=== PATIENT | male | born 1985 ===

== ENCOUNTER 2025-04-29 13:51 | Emergency (ER) | payer MEDICAID, SELFPAY ==
[2025-04-29 13:54] VITALS: BP 152/108; PULSE 83; RESP 20; TEMP 36.9; O2SAT 95
--- NOTE | 2025-04-29 14:06 | ED.GENADUL_ITS ---
Discharge Plan Disposition Patient Disposition: Home Condition: Good Discharge Details Clinical Impression: Spasm of muscle of lower back ED Provider: Dmitry Coffman Dexter Meds and New Rx's Prescriptions: New cyclobenzaprine 10 mg tablet 10 mg PO TID PRN (Reason: muscle spasm) Qty: 20 0RF lidocaine 5 % adhesive patch,medicated 1 patch topical DAILY PRN (Reason: back pain) Qty: 15 0RF Rx Instructions: leave on most painful area for up to 12 hrs Discharge Instructions Instructions: Muscle Spasm ED Additional Instructions: Alternate ibuprofen with acetaminophen every 4 hours as we discussed. Activity as tolerated but avoid excessive bending or heavy lifting. Lidocaine patches and cyclobenzaprine as needed for pain and spasm. Heat, gentle stretching, gentle massage will also help. Look into and obtain primary care for follow-up of your blood pressure as we discussed. Return to ED for any severe worsening back pain, bladder or bowel dysfunction, numbness or weakness to the legs, other concerns. HPI General Mode of arrival: ambulatory . Date/Time Provider Initiated Documentation: 04/29/25 14:01 . Limitations to Documentation: no limitations . Information obtained by: patient and RN notes reviewed . HPI Narrative: Patient presents to the ED with left-sided back pain, worse with certain movements. Patient has history of back problems. Went to lift what he thought was a light box, which turned out to be a very heavy box. In the process tweaked his low back muscle. Over the weekend he rested, took Tylenol and used heat. Returned to work today and has had increased pain due to standing all day, movements will cause muscle to spasm. Denies any bladder or bowel dysfunction. Denies any midline back pain. Denies numbness or weakness to the lower extremity. When the back spasms he gets pain which makes his left leg feel like it is going to let go but not any true weakness. Denies any abdominal pain. Denies any fever, vomiting or diarrhea. Related Data Home Medications ?Medication ?Instructions ?Recorded ?Confirmed cyclobenzaprine 10 mg tablet 10 mg PO TID PRN muscle s pasm #20 04/29/25 tabs lidocaine 5 % topical patch 1 patch topical DAILY PRN back 04/29/25 pain #15 ea Previous Rx's ?Medication ?Instructions ?Recorded cyclobenzaprine 10 mg tablet 10 mg PO TID PRN muscle s pasm #20 04/29/25 tabs lidocaine 5 % topical patch 1 patch topical DAILY PRN back 04/29/25 pain #15 ea Allergies Allergy/AdvReac Type Severity Reaction Status Date / Time No Known Allergies Allergy Unverified 04/29/25 13:53 General Stated Complaint: Nk/Back Pain ZAHRA: 3 Exam Narrative Exam Narrative: Const: Obese male in NAD. VS per triage. HEENT: NC/AT. Normal facial exam. Neck: Supple. Trachea midline. Lungs: Normal respiratory effort. Back: No CVAT. No midline tenderness. Some left paraspinal tenderness/tightness. Neuro: A+O x 3. Normal speech, mentation, gait. Cranial nerves II - XII gr ossly intact. No gross motor or sensory deficit. Ext: No C/C/E. Course Vital Signs Vital signs: Vital Signs Temperature 98.4 F 04/29/25 13:54 Pulse 83 04/29/25 13:54 Respiratory Rate 20 04/29/25 13:54 Blood Pressure 152/108 H 04/29/25 13:54 Pulse Oximetry 95 04/29/25 13:54 Temperature 98.4 F 04/29/25 13:54 Temperature Source Oral 04/29/25 13:54 Pulse 83 04/29/25 13:54 Respiratory Rate 20 04/29/25 13:54 Blood Pressure 152/108 H 04/29/25 13:54 Blood Pressure Position Sitting 04/29/25 13:54 Pulse Oximetry 95 04/29/25 13:54 Oxygen Delivery Method Room Air 04/29/25 13:54 Oxygen Flow Rate 0 04/29/25 13:54 Pain Level 6 04/29/25 14:00 Medical Decision Making Patient presenting to ED with left low back pain related to lifting heavy object now with continued pain and spasm. Has had this issue previously. Typically resolves with use of muscle relaxer which she does not currently have. Patient noted to have elevated blood pressure. Does report history of same and had been on medication in the past. Is not taking it currently and does not have primary care. Discussed importance of obtaining primary care and if blood pressure consistently high starting medication to control. In regards to his back there is no midline tenderness. There is left paraspinal tenderness and tightness consistent with muscle spasm. There are no red flags for neurologic involvement or cauda equina. Patient will be treated with IM ketorolac, oral cyclobenzaprine, topical lidocaine patch. Discussed alternating acetaminophen with ibuprofen over the next few days. Prescription for lidocaine patches and cyclobenzaprine sent to pharmacy. Again encouraged to obtain primary care. Return precautions provided. PFSH All Active Problems (Updated 04/29/25 @ 14:22 by Dmitry Coffman MD) Spasm of muscle of lower back (Acute) Social History Smoking/Tobacco Use Status: Former Tobacco Use Tobacco: How many years used: 24 Smoking risk assessment performed?: Yes Alcohol Intake: former Drug use: Occasionally Substance use type: marijuana Do you feel safe at home: Yes Do you feel safe in your relationship?: Yes
[2025-04-29] MEDS: Lidocaine 5% Patch 1 PATCH TP (14:30)
[2025-04-29] MEDS: Ketorolac 30 MG/ML VIAL IM (14:31)
[2025-04-29] MEDS: Cyclobenzaprine 10 MG TAB PO (14:31)
== END 2025-04-29 14:38 | disposition home or self-care (01) ==
LOC: ER 14:46
PROVIDERS: Emergency Provider Emergency Medicine
DX: M62.830 Muscle spasm of back (principal)
CPT/HCPCS: 99284; 99283; 36415; 96372; J1885